=== PATIENT | male | born 1960 | race Caucasian/White ===

== ENCOUNTER 2022-01-26 10:45 | Emergency (ER) | payer OTHER ==
[2022-01-26 11:00] VITALS: BP 124/56; PULSE 96; RESP 18; TEMP 97.8; BMI 27.4
[2022-01-26] MEDS ORDERED: ACETAMINOPHEN 1000 MG/100 ML BAG IVPB ONE (11:52)
[2022-01-26] MEDS ORDERED: DIPHTH,PERTUSS(ACELL),TET 0.5 ML DISP.SYRIN IM ONE (12:29)
[2022-01-26] MEDS ORDERED: ACETAMINOPHEN INJECTION 100 ML IVPB ONE (12:29)
[2022-01-26 12:57] LABS: BASO % 0.3 % (0-2.0); EOS % 1.4 % (0-4.5); HEMATOCRIT 45.1 % (35.4-49); HEMOGLOBIN 15.4 GM/dL (11.7-16.9); LYMPH % 6.3 % (8-40); MCH 30.6 pg (25.7-33.7); MEAN CELL VOLUME 89.8 fl (80-96); MEAN PLT VOLUME 8.4 fl (7.5-11.1); PLATELET COUNT 136 10^3/uL (134-434); RBC 5.03 M/mm3 (4.00-5.60); RDW 13.7 % (11.9-15.9)
[2022-01-26 13:11] LABS: CALCIUM 8.6 mg/dL (8.5-10.1)
[2022-01-26 13:13] LABS: ALBUMIN 3.5 g/dl (3.4-5.0); BLOOD UREA NITROGEN 14.7 mg/dL (7-18)
[2022-01-26 13:15] LABS: CREATININE 1.6 mg/dL (0.55-1.3)
[2022-01-26 13:17] LABS: BILIRUBIN,TOTAL 0.5 mg/dL (0.2-1); TOT PROT 7.6 g/dl (6.4-8.2)
== END 2022-01-26 15:42 | disposition home or self-care (01) ==
LOC: JERFT 10:45
PROC: 3E0234Z Introduction of Serum, Toxoid and Vaccine into Muscle, Percutaneous Approach (ICD-10-PCS; principal; 2022-01-26)
PROC: 3E033NZ Introduction of Analgesics, Hypnotics, Sedatives into Peripheral Vein, Percutaneous Approach (ICD-10-PCS; 2022-01-26)
DX: B02.9 Zoster without complications (principal)
CPT/HCPCS: 0241U-QW; 36415; 70486-TC; 80053; 85025; 90715; 99284-25

== ENCOUNTER 2022-06-16 10:05 | Emergency (ER) | payer OTHER ==
[2022-06-16 10:26] VITALS: RESP 18; BMI 29.2
[2022-06-16] MEDS ORDERED: IBUPROFEN 400 MG TABLET (FP) PO ONE ×2 (11:43→12:02)
[2022-06-16 12:33] LABS: BASO % 0.5 % (0-2.0); EOS % 1.8 % (0-4.5); HEMATOCRIT 45.9 % (35.4-49); HEMOGLOBIN 15.5 GM/dL (11.7-16.9); LYMPH % 15.2 % (8-40); MCH 30.6 pg (25.7-33.7); MCHC 33.8 g/dl (32.0-35.9); MEAN CELL VOLUME 90.5 fl (80-96); MEAN PLT VOLUME 8.6 fl (7.5-11.1); MONO % 4.6 % (3.8-10.2); NEUT % 77.9 % (42.8-82.8); PLATELET COUNT 235 10^3/uL (134-434); RBC 5.08 M/mm3 (4.00-5.60); RDW 13.4 % (11.9-15.9)
[2022-06-16 12:50] LABS: CALCIUM 9.4 mg/dL (8.5-10.1)
[2022-06-16 12:51] LABS: ALBUMIN 3.8 g/dl (3.4-5.0); BLOOD UREA NITROGEN 13.2 mg/dL (7-18)
[2022-06-16 12:53] LABS: CREATININE 1.3 mg/dL (0.55-1.3)
[2022-06-16 12:55] LABS: BILIRUBIN,TOTAL 0.5 mg/dL (0.2-1); TOT PROT 7.9 g/dl (6.4-8.2)
[2022-06-16] MEDS ORDERED: SODIUM CHLORIDE 0.9% 500 ML INFUS.BAG IV ONE (13:32)
[2022-06-16 17:29] LABS: BLOOD UREA NITROGEN 13.1 mg/dL (7-18)
[2022-06-16 17:32] LABS: CREATININE 1.3 mg/dL (0.55-1.3)
[2022-06-16 18:32] VITALS: BP 137/77; PULSE 71; TEMP 97.2
== END 2022-06-16 18:15 | disposition home or self-care (01) ==
LOC: JER 10:05
DX: M25.512 Pain in left shoulder (principal)
CPT/HCPCS: 36415; 71046-TC-FY; 73030-TC-LT-FY; 80048; 80053; 82550; 82553; 84484; 85025; 93005; 93010; 99285-25